=== PATIENT | female | born 1995 | race Caucasian/White ===

== ENCOUNTER 2017-05-04 12:08 | Emergency (ER) | payer SELFPAY ==
[2017-05-04 12:21] VITALS: BP 147/93
[2017-05-04] MEDS ORDERED: IBUPROFEN 800 MG TABLET PO ONE (12:31)
--- NOTE | 2017-05-04 12:32 | ER Document Report ---
ED Medical Screen (RME) - General Chief Complaint: Abscess Stated Complaint: ABSCESS ON LEFT ARM Mode of Arrival: Ambulatory Information source: Patient Notes: Patient is a 21 year old female who presents to the ED with complaints of left arm pain and an abscess secondary to a needle stick 4 days ago. Patient states she relapsed and went to inject drugs and knew that something was not right so she removed the needle without injecting the drugs. Patient denies a fever. TRAVEL OUTSIDE OF THE [place] IN LAST 30 DAYS: No - HPI Associated Symptoms: Other - see above - Related Data Allergies/Adverse Reactions: azithromycin Allergy (Verified 05/04/17 12:26) Sulfa (Sulfonamide Antibiotics) Allergy (Verified 05/04/17 12:18) Past Medical History Renal/ Medical History: Denies: Hx Peritoneal Dialysis Review of Systems - Review of Systems Constitutional: See HPI. denies: Fever EENT: No symptoms reported Cardiovascular: No symptoms reported Respiratory: No symptoms reported Gastrointestinal: No symptoms reported Genitourinary: No symptoms reported Female Genitourinary: No symptoms reported Musculoskeletal: No symptoms reported Skin: See HPI, Other - abscess Hematologic/Lymphatic: No symptoms reported Neurological/Psychological: No symptoms reported Physical Exam - Vital signs Vitals: Temp Pulse Resp BP Pulse Ox 98.3 F 116 H 20 147/93 H 100 05/04/17 12:18 05/04/17 12:18 05/04/17 12:18 05/04/17 12:18 05/04/17 12:18 - Extremities General upper extremity: Other - see arm exam Arm: Other - large abscess on left forearm that is expanding with surrounding erythema and purulent drainage noted Course - Vital Signs Vital signs: Temp Pulse Resp BP Pulse Ox 98.3 F 116 H 20 147/93 H 100 05/04/17 12:18 05/04/17 12:18 05/04/17 12:18 05/04/17 12:18 05/04/17 12:18 Scribe Documentation - Scribe Written by Shannon:: shannon Stroud, 05/04/2017, 1231 acting as scribe for :: Júnior
[2017-05-04] MEDS ORDERED: LIDOCAINE 1% INJ-PF (10 MG/ML) 30 ML SDV INJ ONE (12:50)
[2017-05-04] MEDS ORDERED: OXYCODONE-ACETAMINOPHEN 5-325 MG TABLET PO ONE (12:50)
[2017-05-04] MEDS ORDERED: CEPHALEXIN 500 MG CAPSULE PO ONE (13:05)
[2017-05-04] MEDS ORDERED: CLINDAMYCIN HCL 150 MG CAPSULE PO ONE (13:06)
--- NOTE | 2017-05-04 14:22 | ER Document Report ---
ED Skin Rash/Insect Bite/Abscs - General Chief Complaint: Abscess Stated Complaint: ABSCESS ON LEFT ARM Time Seen by Provider: 05/04/17 12:29 Mode of Arrival: Ambulatory Notes: Patient is a 21 year old female who presents to the ED with complaints of left arm pain and an abscess secondary to a needle stick 4 days ago. Patient states she relapsed and went to inject drugs and knew that something was not right so she removed the needle without injecting the drugs. Patient denies a fever. Full ROM of distal extremity, denies numbness or tingling TRAVEL OUTSIDE OF THE [place] IN LAST 30 DAYS: No - Related Data Allergies/Adverse Reactions: azithromycin Allergy (Verified 05/04/17 12:26) Sulfa (Sulfonamide Antibiotics) Allergy (Verified 05/04/17 12:18) Past Medical History - General Information source: Patient - Social History Smoking Status: Never Smoker Frequency of alcohol use: None Family History: Reviewed & Not Pertinent Patient has suicidal ideation: No Patient has homicidal ideation: No Renal/ Medical History: Denies: Hx Peritoneal Dialysis Surgical Hx: Negative Review of Systems - Review of Systems Constitutional: No symptoms reported Skin: See HPI Hematologic/Lymphatic: No symptoms reported -: Yes All other systems reviewed and negative Physical Exam - Vital signs Vitals: Temp Pulse Resp BP Pulse Ox 98.3 F 116 H 20 147/93 H 100 05/04/17 12:18 05/04/17 12:18 05/04/17 12:18 05/04/17 12:18 05/04/17 12:18 - General General appearance: Appears well, Alert In distress: None - Cardiovascular Pulses: Normal: Radial Normal capillary refill: Yes - Extremities General upper extremity: Normal ROM, Normal strength - Neurological Neuro grossly intact: Yes Cognition: Normal Orientation: AAOx4 Nika Coma Scale Eye Opening: Spontaneous Nika Coma Scale Verbal: Oriented [place] Coma Scale Motor: Obeys Commands [place] Coma Scale Total: 15 Speech: Normal Motor strength normal: LUE, RUE, LLE, RLE 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 I&D at the bedside for approximately 15 cc of purulent material. Underlying vasculature intact. Packing placed. Patient to follow- up in 3 days to have the packing removed and to have the pocket evaluated. Patient given strict return precautions. Site was marked with a surgical marker to evaluate cellulitis. - Vital Signs Vital signs: Temp Pulse Resp BP Pulse Ox 98.3 F 116 H 20 147/93 H 100 05/04/17 12:18 05/04/17 12:18 05/04/17 12:18 05/04/17 12:18 05/04/17 12:18 Procedures - Incision and Drainage Left Arm Type: Simple Anesthetic type: 1% Lidocaine mL's of anesthetic: 5 Blade size: 11 I&D procedure: Betadine prep applied Incision Method: Incision made by scalpel Amount/type of drainage: 15 cc purulent material Adult Front & Back picture: 1 - abscess Discharge - Discharge Clinical Impression: Abscess Condition: Good Disposition: HOME, SELF-CARE Additional Instructions: Please return in 3 days to have your wound rechecked. I will be here from 10am- 10pm ABSCESS: You have an abscess (boil). This a pus-forming infection, usually due to staph. Some boils may be left to drain on their own, but most require lancing. From the time the tender lump first appears, it may be three or four days before the abscess is ready to oneal. Local heat and rest help at this stage of treatment. An antibiotic may prevent spread of the infection. Once the abscess is opened, packing may be placed into it. This is done so pus is not sealed inside by premature closure of the cavity. The packing will be removed at your follow-up visit or you may be advised to remove it yourself at home. Sometimes this packing must be replaced a few times during healing. The wound will heal with surprisingly little scar. Depending on the size and location of an abscess, healing can take one to four weeks. You may shower and wash the area around the incision site two or three times a day. Antibiotics may be prescribed, but are usually not necessary after an abscess has been drained. If you develop fever, chills, worsening pain, or increasing swelling in the area, call the doctor or return immediately. POST INCISION AND DRAINAGE: You have had an incision made to allow drainage of an abscess. The incision must remain open so that pus and debris can drain from the wound. If the abscess cavity is large, packing is placed. This keeps the tissues from collapsing and trapping pus inside, while the body shrinks the cavity. The packing may need to be replaced every day or two. The physician will instruct you on the packing. Keep a bulky dressing over the area. Replace it if it becomes saturated with blood or pus. Do not disturb the packing (if present). You may shower and cleanse the area with gentle soap and warm water two or three times a day. Local warmth may be soothing, and may promote faster healing. Return if you develop high fever or chills, or if you note spreading redness, increasing swelling, or increasing tenderness. MRSA CELLULITIS: You have an infection of your skin and underlying soft tissues called cellulitis. This is due to bacteria, which can enter through any break in the skin, or even through an irritated hair follicle. Untreated, cellulitis will usually worsen and may form an abscess which requires draining. Although many bacterial organisms can cause cellulitis and abscess formations, the most likely bacteria is Methicillin-Resistant Staph Aureus, or MRSA for short. Antibiotics are required. Usually, warm packs or warm soaks, and elevation of the infected area are recommended. You should start getting better within 24 to 36 hours. Most infections respond quickly to the right medication. Follow-up care is important, however, to check for abscess (boil) formation, unsuspected foreign body, or resistant infection. If you develop fever, chills, or if the area of infection is becoming rapidly more swollen or painful, call the doctor at once. ORAL NARCOTIC MEDICATION: You have been given a prescription for pain control. This medication is a narcotic. It's best taken with food, as nausea can result if taken on an empty stomach. Don't operate machinery or drive within six hours of taking this medication. Do not combine this medicine with alcohol, or with any medication which can cause sedation (such as cold tablets or sleeping pills) unless you get permission from the physician. Narcotics tend to cause constipation. If possible, drink plenty of fluids and eat a diet high in fiber and fruits. CEPHALEXIN: The antibiotic you've been prescribed is a member of the cephalosporin class. This type of antibiotic covers a wide variety of infections, including those of the skin, lungs, and urinary tract. It's useful for staph infections. This antibiotic is slightly similar to the penicillin family. In rare cases , a person who is allergic to penicillin will also be allergic to this medication. If you have had a severe allergic reaction to penicillin, and have not taken this antibiotic since that time, notify your doctor. Antibiotics which cover many germs ("broad spectrum" antibiotics) are more likely to cause diarrhea or "yeast" infections. Women prone to vaginal yeast problems may suffer an attack after taking this antibiotic. In infants, oral thrush (white spots "stuck" on the cheek) or yeast diaper rash may result. See your doctor if these problems occur. Call at once if you develop itching, hives , shortness of breath, or lightheadedness. FOLLOW-UP CARE: Most simple abscesses will not require a follow up visit. If you had packing placed in the abscess, remove it as instructed by the physician. If you have been referred to a physician for follow-up care, call the physicians office for an appointment as you were instructed or within the next two days. If you experience worsening or a significant change in your symptoms, return to the Emergency Department at any time for re-evaluation. Prescriptions: Cephalexin Monohydrate [Keflex 500 mg Capsule] 500 mg PO QID 7 Days Clindamycin HCl 450 mg PO TID 7 Days Ibuprofen [Motrin 800 mg Tablet] 800 mg PO Q8H PRN #30 tab PRN Reason: Referrals: SHERRILL MCCURDY MD [NO LOCAL MD] - Follow up as needed
[2017-05-04] MEDS ORDERED: HYDROCODONE/ACETAMINOPHEN 5-325 MG 6 TAB/DSPK PO PRN (14:34)
== END 2017-05-04 13:00 | disposition home or self-care (01) ==
LOC: ER 12:08
PROC: 0H9EXZZ Drainage of Left Lower Arm Skin, External Approach (ICD-10-PCS; principal; 2017-05-04)
DX: L02.414 Cutaneous abscess of left upper limb (principal); Z88.2 Allergy status to sulfonamides; Z88.3 Allergy status to other anti-infective agents
CPT/HCPCS: 99283; 87070; 87205; 87077; 10060; J3490; A6266

== ENCOUNTER 2017-05-07 12:32 | Emergency (ER) | payer SELFPAY ==
[2017-05-07 12:37] VITALS: BP 135/69
--- NOTE | 2017-05-07 13:21 | ER Document Report ---
ED Wound - General Chief Complaint: Wound Recheck Stated Complaint: RECHECK/ABSCESS, LEFT ARM Time Seen by Provider: 05/07/17 12:49 Notes: Patient is a 21-year-old female who returns emergency department after being evaluated on May 04 for a left forearm abscess. Patient states that her redness and swelling has decreased significantly. She is been taking her antibiotics as prescribed. She states her pain is improving. Patient states that she has been doing dressing changes daily. She admits to minimal drainage but otherwise left packing in place. She denies any fevers, chills. TRAVEL OUTSIDE OF THE [place] IN LAST 30 DAYS: No - Related Data Allergies/Adverse Reactions: azithromycin Allergy (Verified 05/07/17 12:36) Sulfa (Sulfonamide Antibiotics) Allergy (Verified 05/07/17 12:36) Past Medical History - Social History Smoking Status: Never Smoker Chew tobacco use (# tins/day): No Frequency of alcohol use: None Drug Abuse: Heroin Family History: Reviewed & Not Pertinent Patient has suicidal ideation: No Patient has homicidal ideation: No Renal/ Medical History: Denies: Hx Peritoneal Dialysis Surgical Hx: Negative - Immunizations Hx Diphtheria, Pertussis, Tetanus Vaccination: Yes Review of Systems - Review of Systems Constitutional: No symptoms reported Musculoskeletal: No symptoms reported Skin: See HPI -: Yes All other systems reviewed and negative Physical Exam - Vital signs Vitals: Temp Pulse Resp BP Pulse Ox 98.2 F 65 16 135/69 H 97 05/07/17 12:36 05/07/17 12:36 05/07/17 12:36 05/07/17 12:36 05/07/17 12:36 - General General appearance: Appears well, Alert In distress: None - Cardiovascular Pulses: Normal: Radial Normal capillary refill: Yes - Extremities General upper extremity: Nontender, Normal color, Normal ROM, Normal strength, Normal temperature - Neurological Neuro grossly intact: Yes Cognition: Normal Orientation: AAOx4 [place] Coma Scale Eye Opening: Spontaneous [place] Coma Scale Verbal: Oriented Nika Coma Scale Motor: Obeys Commands [place] Coma Scale Total: 15 Motor strength normal: LUE, RUE, LLE, RLE 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 Debridement of packing removed with ease. Abscess pocket no longer and keep as prior. Evidence of superficial purulent material that was debrided at the bedside. Otherwise minimally tender. Surrounding induration that is all within the borders of the skin marker left previously on May 04. Course - Re-evaluation Re-evalutation: 05/07/17 22:19 Patient is a 21-year-old female hemodynamic stable, no acute distress afebrile. Patient abscess healing well. Packing replaced and will allow wound to heal by second intention with wet-to-dry dressings for debridement. Patient instructed to follow-up in 2-3 days for wound check. Otherwise given phone number for primary care in the area. Patient to continue taking antibiotics. Patient given strict return precautions. Patient expresses understanding. A second skin marker was used to ivy the new area of remaining induration and cellulitis. - Vital Signs Vital signs: Temp Pulse Resp BP Pulse Ox 98.2 F 65 16 135/69 H 97 05/07/17 12:36 05/07/17 12:36 05/07/17 12:36 05/07/17 12:36 05/07/17 12:36 Discharge - Discharge Clinical Impression: Wound check, abscess Condition: Good Disposition: HOME, SELF-CARE Instructions: Dressing Instructions for Open Wounds ([facility]) Additional Instructions: Please follow up in 2-3 days for a wound check Forms: Elevated Blood Pressure Referrals: SHERRILL MCCURDY MD [NO LOCAL MD] - Follow up in 3-5 days
== END 2017-05-07 13:30 | disposition home or self-care (01) ==
LOC: ER 12:32
DX: L02.414 Cutaneous abscess of left upper limb (principal); Z48.00 Encounter for change or removal of nonsurgical wound dressing; Z88.1 Allergy status to other antibiotic agents; Z88.2 Allergy status to sulfonamides
CPT/HCPCS: 99282

== ENCOUNTER 2017-05-09 16:57 | Emergency (ER) | payer SELFPAY ==
[2017-05-09 17:04] VITALS: BP 120/67
--- NOTE | 2017-05-09 17:49 | ER Document Report ---
HPI - HPI Pain Level: 1 Notes: Patient is a 21-year-old female presents the ED for incision and drainage recheck status post procedure on 04 May. Patient states that she did follow- up on the and had the packing replaced. Patient states that her forearm is healing well without any new complications. Patient states that she no longer has any discomfort or pain and continues take the antibiotic as directed. She is scheduled to establish with a PCM next with Dat. She has not noticed any red streaks, worsening erythema, or any purulent discharge. Denies any fever, headache, chest pain, palpitations, cough, wheeze , shortness breath, abdominal pain, nausea/vomiting/diarrhea. - ROS Notes: REVIEW OF SYSTEMS: CONSTITUTIONAL : Denies fever, chills, or sweats. Denies recent illness. EENT: Denies eye, ear, throat, or mouth pain or symptoms. Denies nasal or sinus congestion or discharge. Denies throat, tongue, or mouth swelling or difficulty swallowing. CARDIOVASCULAR: Denies chest pain. Denies palpitations or racing or irregular heart beat. Denies ankle edema. RESPIRATORY: Denies cough, cold, or chest congestion. Denies shortness of breath, difficulty breathing, or wheezing. GASTROINTESTINAL: Denies abdominal pain or distention. Denies nausea, vomiting , or diarrhea. Denies blood in vomitus, stools, or per rectum. Denies black, tarry stools. Denies constipation. GENITOURINARY: Denies difficulty urinating, painful urination, burning, frequency, blood in urine, or discharge. MUSCULOSKELETAL: Denies back or neck pain or stiffness. Denies joint pain or swelling. SKIN: see hpi NEUROLOGICAL: Denies confusion or altered mental status. Denies passing out or loss of consciousness. Denies dizziness or lightheadedness. Denies headache. Denies weakness or paralysis or loss of use of either side. Denies problems with gait or speech. Denies sensory loss, numbness, or tingling. ALL OTHER SYSTEMS REVIEWED AND NEGATIVE. Dictation was performed using [employer] voice recognition software - CARDIOVASCULAR Cardiovascular: DENIES: Chest pain - DERM Skin Color: Normal Past Medical History - Social History Smoking Status: Never Smoker Chew tobacco use (# tins/day): No Frequency of alcohol use: None Drug Abuse: None Family History: Reviewed & Not Pertinent Renal/ Medical History: Denies: Hx Peritoneal Dialysis - Immunizations Hx Diphtheria, Pertussis, Tetanus Vaccination: Yes Vertical Provider Document - CONSTITUTIONAL Agree With Documented VS: Yes Notes: PHYSICAL EXAMINATION: GENERAL: Well-appearing, well-nourished and in no acute distress. NECK: Normal range of motion, supple without lymphadenopathy LUNGS: Breath sounds clear to auscultation bilaterally and equal. No wheezes rales or rhonchi. HEART: Regular rate and rhythm without murmurs, rubs, gallops. Musculoskeletal: Lt UE: FROM to passive/active. Strength 5+/5. Extremities: No cyanosis, clubbing, or edema b/l. Peripheral pulses 2+. Capillary refill less than 3 seconds. Neuro: Normal sensory, motor exams PSYCH: Normal mood, normal affect. SKIN: Healing wound to the left forearm. No purulent discharge, surrounding erythema, or streaks noted. Minimal induration noted. Non-tender. No pocket remaining. No packing will be replaced. Old packing came out with dressing. - INFECTION CONTROL TRAVEL OUTSIDE OF THE [place] IN LAST 30 DAYS: No - RESPIRATORY O2 Sat by Pulse Oximetry: 100 Course - Re-evaluation Re-evalutation: 05/09/17 18:06 Patient is an afebrile, well-hydrated, 21-year-old female presents the ED for wound recheck status post incision and drainage on May 04. This is her second follow-up for this incision and drainage. Vitals are stable. PE otherwise unremarkable. The wound shows good healing status post incision and drainage. Packing came out very easily when dressing was pulled off. No packing will be replaced at this visit has no hole/pocket remains. Wound healing by secondary intent. There is no more surrounding erythema at this time. No other signs of worsening infection. Continue wound dressings daily as directed. Continue antibiotics as directed. Recheck with your PCM as scheduled next . Return to the ED with any worsening/concerning symptoms otherwise as reviewed in discharge. Patient is in agreement. - Vital Signs Vital signs: Temp Pulse Resp BP Pulse Ox 98.4 F 67 12 120/67 100 05/09/17 17:02 05/09/17 17:02 05/09/17 17:02 05/09/17 17:02 05/09/17 17:02 Discharge - Discharge Clinical Impression: Encounter for wound re-check Condition: Stable Disposition: HOME, SELF-CARE Instructions: Soap Cleansing ([facility]) Additional Instructions: Keep the skin clean Soap and water rinses Bacitracin as directed Tylenol/ibuprofen as needed Wound dressings daily Recheck with your PCM next Return to the ED with any worsening symptoms and/or development of fever, headache, chest pain, palpitations, syncope, shortness of breath, trouble breathing, abdominal pain, n/v/d, numbness/tingling, worsening redness, streaks , purulent discharge, or other worsening symptoms that are concerning to you. Referrals: [facility] [Provider Group] - Follow up in 3-5 days
== END 2017-05-09 18:15 | disposition home or self-care (01) ==
LOC: ER 16:57
DX: Z48.01 Encounter for change or removal of surgical wound dressing (principal)
CPT/HCPCS: 99282